=== PATIENT | female | born 1965 | race African-American/Black ===

== ENCOUNTER 2018-01-11 09:46 | Emergency (ER) | payer OTHER ==
[~2018-01-11] VITALS: Ht 162.6 cm; Wt 84.4 kg
[~2018-01-11 09:46] MED LIST: ACETAMINOPHEN-1 EAC1 ORAL; BACTRIM DS TAB1 EAC1 ORAL; BENADRYL25 MG ORAL; IBUPROFEN600 MG ORAL
[2018-01-11 09:59] VITALS: BP 143/62
[2018-01-11] MEDS ORDERED: BENADRYL25 MG ORAL (10:27)
[2018-01-11] MEDS ORDERED: PREDNISONE20 MG ORAL (10:27)
[2018-01-11 10:44] VITALS: BP 143/62
--- NOTE | 2018-01-12 06:56 | Emergency Room Report ---
History of Present Illness General Chief Complaint: General Complaint Source: Patient, Medical Record Present Illness HPI Patient presents with rash involving the facial area bilateral hands antecubital fossa and lower back Patient reports that the rash is itchy She reports that the rash has been ongoing for the past several days About 7 days ago the patient saw a director maternal child and was started on any medication Denies any chest pain or shortness of breath denies any vomiting or diarrhea Patient had taken a Benadryl last night which helped minimally Allergies: Coded Allergies: PENICILLINS (Verified Allergy, Mild, rash, 01/11/18) Patient History Past Medical History: see triage record Pertinent Family History: none Last Menstrual Period: Dec 2017 Reviewed Nursing Documentation: PMH: Agreed; PSxH: Agreed Nursing Documentation-PMH Past Medical History: No History, Except For Hx Cardiac Problems: No Hx Hypertension: Yes Hx Cancer: Yes - FAMILY HX Hx Gastrointestinal Problems: No Hx Headaches: Yes - MIGRAINES Review of Systems All Other Systems: negative except mentioned in HPI Physical Exam Vital Signs Date Time Temp Pulse Resp B/P (MAP) Pulse Ox O2 Delivery O2 Flow Rate FiO2 01/11/18 09:54 98.4 109 16 143/62 95 Room Air Sp02 EP Interpretation: reviewed, normal General Appearance: well appearing, no apparent distress Head: normocephalic, atraumatic Eyes: bilateral eye PERRL, bilateral eye EOMI ENT: hearing grossly normal, normal pharynx, TMs + canals normal, uvula midline Neck: full range of motion, supple, no meningismus, no bony tend Respiratory: chest non-tender, lungs clear, no wheezing Cardiovascular #1: normal peripheral pulses, regular rate, rhythm Gastrointestinal: non tender Musculoskeletal: normal inspection Neurologic: alert, oriented x3, responsive Skin: other - Patient has a raised erythematous rash involving bilateral nasal ridge just at the eyebrow levels involving anterior middle fossa bilaterally, just at the upper sacral region of the lower back, nonblanching, no obvious petechiae, no sloughing of the skin Lymphatic: no adenopathy Medical Decision Making Diagnostic Impression: Primary Impression: Rash and other nonspecific skin eruption ER Course Given the general appearance in the history there is concern of autoimmune type process such as lupus Patient is seeing her director maternal child this week patient was otherwise symptomatically treated with steroids and Benadryl and will have close outpatient follow-up Last Vital Signs Date Time Temp Pulse Resp B/P (MAP) Pulse Ox O2 Delivery O2 Flow Rate FiO2 01/11/18 10:44 98.4 109 16 143/62 95 Room Air Status: unchanged Disposition: HOME, SELF-CARE Condition: Improved Scripts Diphenhydramine Hcl* (BENADRYL*) 25 Mg Capsule 25 MG ORAL Q6H PRN for Itching, #20 CAP Prov: Jade Booth DO 01/11/18 Prednisone* (PREDNISONE*) 20 Mg Tablet 20 MG ORAL BID, #12 TAB Prov: Jade Booth DO 01/11/18 Referrals: [facility],REFERRING (PCP) Patient Instructions: Rash, [id number] Additional Instructions: Please note that the rash you are presenting with today has concerning aspects of systemic findings, including diagnoses such as lupus and other autoimmune disease You have mentioned that you saw a director maternal child recently This would be the specific specialist to follow up with on Saturday Jade Booth DO Jan 12, 2018 06:56
== END 2018-01-11 10:45 | disposition home or self-care (01) ==
LOC: EMR 10:26
DX: R21 Rash and other nonspecific skin eruption (principal); I10 Essential (primary) hypertension
CPT/HCPCS: 99283; J7512